=== PATIENT | female | born 1960 | race Caucasian/White ===

== ENCOUNTER 2016-04-13 20:37 | Emergency (ER) | payer BC ==
[2016-04-13 21:04] LABS: BASOPHILS 1.3 % (0.0-2.0); EOSINOPHILS 2.7 % (0-7); HEMOGLOBIN 13.7 g/dL (12-16); IMMATURE GRANULOCYTES 0.1 % (0-5); LYMPHOCYTES 46.5 % (15-50); MCH 32.9 pg (26.0-34.0); MCHC 33.4 g/dL (31.0-37.0); MCV 98.6 fL (80.0-100.0); MEAN PLATELET VOLUME 10.1 fL (7.4-10.4); MONOCYTES 7.4 % (2-11); PLATELET COUNT 273 10x3/uL (130-400); RBC 4.16 10x6/uL (4.00-5.40); RDW 13.2 % (11.5-14.5); WBC 9.3 10x3/uL (4.8-10.8)
[2016-04-13 21:19] LABS: ALKALINE PHOSPHATASE 54 U/L (46-116); ALT (SGPT) 17 U/L (10-68); BILIRUBIN - TOTAL 0.31 mg/dL (0.2-1.3); CALC OSMOLALITY 285 mosm/kg (275-300); CALCIUM 9.4 mg/dL (8.5-10.1); CARBON DIOXIDE 25.1 mmol/L (21.0-32.0); CHLORIDE - SERUM 105 mmol/L (98-107); CREATININE - SERUM 0.8 mg/dL (0.6-1.3); GLUCOSE 92 mg/dL (74-106); POTASSIUM - SERUM 3.1 mmol/L (3.5-5.1); PROTEIN - SERUM 7.1 g/dL (6.4-8.2); SODIUM 143 mmol/L (136-145); UREA NITROGEN 14 mg/dL (7-18); eGFR NON AFRICAN AMERICAN 79 mL/min (90-120)
[2016-04-13 21:31] LABS: CKMB 0.6 U/L (0.0-3.6); CREATINE KINASE 62 UL (21-215)
[2016-04-13 21:37] LABS: TROPONIN-I < 0.017 ng/mL (0.000-0.060)
== END 2016-04-13 22:25 | disposition home or self-care (01) ==
LOC: D.ER 20:37
PROVIDERS: Emergency Medicine
DX: R07.9 Chest pain, unspecified (principal); E87.6 Hypokalemia; F90.9 Attention-deficit hyperactivity disorder, unspecified type; I10 Essential (primary) hypertension; F17.200 Nicotine dependence, unspecified, uncomplicated

== ENCOUNTER → 2017-12-13 13:18 | Outpatient (CLI) | payer BC | END | disposition home or self-care (01) | LOC: D.CT 13:18 | DX: R10.9 Unspecified abdominal pain (principal) ==

== ENCOUNTER → 2018-02-20 15:48 | Outpatient (CLI) | payer BC | END | disposition home or self-care (01) | LOC: D.CT 15:48 | DX: R05 Cough (principal) ==